=== PATIENT | female | born 1940 | race Caucasian/White ===

== ENCOUNTER 2024-12-28 08:49 | Day surgery (SDC) | payer MEDICARE, SELFPAY ==
[2024-12-21 14:17] VITALS: BMI 20.1
[2024-12-28 09:57] VITALS: BP 187/98; PULSE 65; RESP 16; TEMP 36.4; O2SAT 92
[2024-12-28] MEDS: TETRACAINE 0.5% OPTH SOL 15ML OP (10:05)
[2024-12-28] MEDS: APRACLONIDINE 0.5% OPHTH SOLN 5ML OP (10:06)
[2024-12-28] MEDS: TROPICAMIDE 1% OPTH SOLN 2ML OP (10:06)
[2024-12-28] MEDS: PHENYLEPHRINE 2.5% OPHTH SOLN 2ML OP (10:06)
--- NOTE | 2024-12-28 11:08 | P.PCN_ITS ---
[facility] Procedure Note Date: 12/28/24 Time: 11:08 Procedure Note:: Preoperative diagnosis: Posterior Opacification both eyes Postoperative diagnosis: same Operation: YAG Laser Capsulotomy The patient has undergone uneventful cataract surgery in the past. The patient has noticed that the vision has decreased from the previous good level postop. The patient reports that he/she is having trouble reading and/or driving or that glare is giving them a problem. On exam, the patient was found to have visually significant posterior capsular opacification. The treatment options, risks and benefits were explained and the patient elected to have YAG laser capsulotomy in an attempt to improve the vision. Of note, the best corrected visual acuity is in the 23/30 or worse range by refraction or glare testing. The eye was dilated and 1 drop of 0.5% Iopidine applied. YAG laser energy was applied to the posterior capsular bag with good formation of an opening and no complications were noted. The patient will be seen back for follow up in 2 weeks OD 32 pulses/129mj OS 35 pulses/139mj
== END 2024-12-28 10:47 | disposition home or self-care (01) ==
PROVIDERS: PCP Family Medicine; Visit Provider Ophthalmology
PROC: (CPT 66821; principal; 2024-12-28 12:30)
DX: H26.493 Other secondary cataract, bilateral (principal); F41.9 Anxiety disorder, unspecified; M19.90 Unspecified osteoarthritis, unspecified site; J44.9 Chronic obstructive pulmonary disease, unspecified; I10 Essential (primary) hypertension; H35.30 Unspecified macular degeneration; E78.00 Pure hypercholesterolemia, unspecified; H91.90 Unspecified hearing loss, unspecified ear; F17.200 Nicotine dependence, unspecified, uncomplicated; Z97.3 Presence of spectacles and contact lenses; Z98.41 Cataract extraction status, right eye; Z98.42 Cataract extraction status, left eye; Z79.899 Other long term (current) drug therapy; Z83.518 Family history of other specified eye disorder
CPT/HCPCS: 66821